=== PATIENT | female | born 1930 | race Asian ===

== ENCOUNTER → 2016-08-03 | Outpatient (CLI) | payer MEDICARE, OTHER ==
--- NOTE | 2016-08-03 14:32 | RAD ---
Abdomen, 2 views, 08/03/2016: History: Nausea and vomiting Gas is present in large and small bowel in a nonspecific pattern. No free air is seen in the abdomen. Surgical clips are present right upper quadrant. There is no evidence of organomegaly. Moderate multilevel degenerative change is present in the spine. IMPRESSION: No acute abdominal abnormality is detected.
== END | disposition home or self-care (01) ==
LOC: DXRADRC 09:59
PROVIDERS: ATTEND Physician Assistant
DX: R11.2 Nausea with vomiting, unspecified (principal)
CPT/HCPCS: 74020

== ENCOUNTER → 2017-02-28 | Outpatient (CLI) | payer MEDICARE, OTHER ==
[~2017-02-28] MED LIST: IOHEXOL 240 MG/ML 50ML VIAL. ONE; IOHEXOL 240 MG/ML 50ML VIAL. PO ONE
[2017-02-28 10:44] LABS: CREATININE 0.5 mg/dL (0.6-1.0); GFR 117.5
--- NOTE | 2017-02-28 15:36 | RAD ---
CT of the abdomen without contrast, 02/28/2017: History: Epigastric pain and vomiting Multidetector CT imaging was performed following oral administration of contrast. No IV contrast was administered for this exam. There are several calcified nodules in the right lung base compatible with granulomas. There is mild bibasilar linear scarring and/or atelectasis. The gallbladder is surgically absent. The unopacified liver shows no abnormality. No pancreatic abnormality is seen. The spleen is of normal size. The unopacified kidneys are unremarkable. No adrenal abnormality is detected. There is moderate aortoiliac calcific plaquing without evidence of aneurysm. No abdominal adenopathy is seen. The bowel loops are not dilated. No free air or significant free fluid is identified in the abdomen. There appears to be a surgical mesh involving the anterior abdominal wall at the midline just superior to the level the umbilicus. There is mild loss of height of the L1 vertebral body of indeterminate age. There are moderate scattered degenerative changes in the lumbar spine. IMPRESSION: 1. Chronic findings as described above. 2. No acute abdominal abnormality is detected. PQRS Compliance Statement: One or more of the following individualized dose reduction techniques were utilized for this examination: 1. Automated exposure control 2. Adjustment of the mA and/or kV according to patient size 3. Use of iterative reconstruction technique
== END | disposition home or self-care (01) ==
LOC: CT 10:03
PROVIDERS: ATTEND Physician Assistant Medical
DX: R91.8 Other nonspecific abnormal finding of lung field (principal); R10.13 Epigastric pain; R11.10 Vomiting, unspecified; I70.0 Atherosclerosis of aorta; M47.896 Other spondylosis, lumbar region; Z90.49 Acquired absence of other specified parts of digestive tract
CPT/HCPCS: 36415; 74150; 82565; 84520; Q9966

== ENCOUNTER → 2017-09-26 | Outpatient (CLI) | payer MEDICARE, OTHER ==
--- NOTE | 2017-09-26 09:29 | RAD ---
Examination: 2 views of the right hip HISTORY: History of right lower quadrant pain, groin pain COMPARISON: None available FINDINGS: The right femoral head is within the acetabulum. Moderate joint space loss identified in the right hip joint. There is no obvious acute fracture or dislocation identified. Multiple round soft tissue calcifications project over the right hip region could be loose bodies or injection granulomas. IMPRESSION: 1. Moderate degenerative changes right hip joint. 2. Multiple round soft tissue calcifications project over the right hip region could be loose bodies or injection granulomas. Electronically signed by: Dev Read MD (09/26/2017 9:25 AM) [id number]
[2017-09-26 09:36] LABS: BASO % 1 % (0-3); EOS # 0.1 x10^3/uL (0.0-0.7); EOS % 2 % (0-3); HEMOGLOBIN 14.6 g/dL (12.0-15.5); LYMPH # 1.3 x10^3/uL (1.0-4.8); LYMPH % 28 % (24-48); MEAN CORPUSCULAR HEMOGLOBIN 33 pg (25-35); MEAN CORPUSCULAR HGB CONC 34 g/dL (31-37); MEAN CORPUSCULAR VOLUME 97 fL (79-100); MONO # 0.3 x10^3/uL (0.0-1.1); MONO % 6 % (0-9); NEUT % 63 % (31-73); PLATELET COUNT 155 x10^3/uL (140-400); RED BLOOD COUNT 4.43 x10^6/uL (3.50-5.40); RED CELL DISTRIBUTION WIDTH 12.7 % (11.5-14.5); WHITE BLOOD COUNT 4.8 x10^3/uL (4.0-11.0)
[2017-09-26 09:48] LABS: ALBUMIN 3.5 g/dL (3.4-5.0); ALBUMIN/GLOBULIN RATIO 1.1 (1.0-1.7); CALCIUM 8.8 mg/dL (8.5-10.1); CREATININE 0.8 mg/dL (0.6-1.0); GFR 68.2; POTASSIUM 4.4 mmol/L (3.5-5.1); TOTAL BILIRUBIN 0.6 mg/dL (0.2-1.0); TOTAL PROTEIN 6.7 g/dL (6.4-8.2)
[2017-09-26 10:49] LABS: SEDIMENTATION RATE 8 (0-25)
--- NOTE | 2017-09-26 17:22 | RAD ---
Abdomen, 2 views, 09/26/2017: HISTORY: Rib and groin pain Gas is present in large and small bowel in a nonspecific pattern. No free air is seen in the abdomen. There are surgical clips in the right upper quadrant. Lower pelvic calcifications are probably phleboliths. There is no evidence organomegaly. Moderate multilevel degenerative changes are present in the spine. There is mild loss of height of several vertebral bodies of indeterminate ages. IMPRESSION: No acute abdominal abnormality is detected. Electronically signed by: Jez Hunt MD (09/26/2017 5:19 PM) [facility]
== END | disposition home or self-care (01) ==
LOC: PMG 08:38
PROVIDERS: ATTEND Physician Assistant
DX: R10.31 Right lower quadrant pain (principal)
CPT/HCPCS: 36415; 73502; 74021; 80053; 82150; 83690; 85025; 85651

== ENCOUNTER → 2017-10-06 | Outpatient (CLI) | payer MEDICARE, OTHER ==
[~2017-10-06] MED LIST changes: +IOHEXOL 300 MG/ML 75 ML VIAL. IV ONE
--- NOTE | 2017-10-06 12:59 | RAD ---
PQRS Compliance Statement: One or more of the following individualized dose reduction techniques were utilized for this examination: 1. Automated exposure control 2. Adjustment of the mA and/or kV according to patient size 3. Use of iterative reconstruction technique CT abdomen/pelvis with contrast 10/06/2017 12:00 AM INDICATION: Abdominal pain for 2 weeks. COMPARISON: CT abdomen February 28, 2017 TECHNIQUE: Multiple axial CT images of the abdomen and pelvis were obtained after the intravenous administration of 75 mL Omnipaque 300. Coronal and sagittal reformats are provided. FINDINGS: There is a 3 mm solid noncalcified subpleural nodule in the right middle lobe. There is a 5 mm solid noncalcified pulmonary nodule along the major fissure in the right middle lobe. There is a 4 mm solid noncalcified pulmonary nodule in the right middle lobe with suggestion of internal calcification most suggestive of a pulmonary granuloma. Heart size is within normal limits. The liver, spleen, bilateral adrenal glands, and pancreas are normal in appearance. Gallbladder is surgically absent. There is no intrahepatic or extrahepatic biliary ductal dilatation. Abdominal aorta is mild a tortuous with mild to moderate calcified and noncalcified atheromatous plaque. There are no pathologically enlarged lymph nodes in abdomen or pelvis. There is no free fluid or free intraperitoneal air. The kidneys enhance symmetrically. There is no suspicious renal mass. There is no hydronephrosis. There are no suspected calculi within the kidneys, ureters or urinary bladder. Fluid-filled dilated loops of small bowel measure up to 3.2 cm. Oral contrast was administered. Oral contrast is identified level of the proximal jejunum. Transition point is suspected adjacent to the ventral abdominal mesh in the midline abdomen (series 2, image 53). Findings may be secondary to adhesions. Small volume free fluid is noted within the pelvis. Colon is decompressed. Appendix is normal in appearance. Urinary bladder is within normal limits given degree of distention. No suspicious pelvic mass is visualized. No suspicious osseous lesions are identified. There is superior endplate compression deformity involving L1 which appears chronic with approximately 50 percent height loss. IMPRESSION: 1. Findings are suggestive of small bowel obstruction with transition point suspected at the level of the ventral abdominal hernia mesh in the midabdomen. Findings may be secondary to adhesions. Short-term follow-up examination may be of benefit to assess for partial versus complete obstruction. 2. Solid noncalcified pulmonary nodules are identified in the right middle and lower lobes. Please refer the Fleischner 2017 pulmonary nodule guidelines for follow-up recommendations. Typically pulmonary nodules measuring less than 6 mm will not need additional follow-up. Electronically signed by: Sharon Lentz MD (10/06/2017 12:55 PM) [id number]
== END | disposition home or self-care (01) ==
LOC: EDSEX → PMG 09:56
PROVIDERS: ATTEND Physician Assistant
DX: I70.0 Atherosclerosis of aorta (principal); R91.8 Other nonspecific abnormal finding of lung field
CPT/HCPCS: 74177; Q9966; Q9967

== ENCOUNTER → 2017-10-20 | Outpatient (CLI) | payer MEDICARE, OTHER | END | disposition home or self-care (01) | LOC: SURG 07:49 | PROVIDERS: ATTEND Anesthesiology Pain Medicine | DX: M25.551 Pain in right hip (principal) | CPT/HCPCS: 99213 ==

== ENCOUNTER 2018-06-19 13:53 | Inpatient (IN) | payer MEDICARE, OTHER ==
[~2018-06-19] VITALS: Ht 165.1 cm; Wt 76.3 kg
[2018-06-19] MEDS ORDERED: IV NORMAL SALINE 1,000ML 1,000 ML IV ONE (14:45)
--- NOTE | 2018-06-19 14:48 | PHYS DOC ---
Past History Past Medical History: GERD Past Surgical History: No Surgical History Smoking: Non-smoker Alcohol Use: None Drug Use: None Adult General Chief Complaint Chief Complaint: ABDOMINAL PAIN HPI HPI Patient is an 87 year old female with a PMH of GERD who presents with two days of dull upper abdominal pain that radiates into her chest. Several years ago she felt similarly and it was worked up to be attributed to reflux. She takes omeprazole and watches what she eats, but recently has been eating larger meals. Patient denies history of abdominal surgery, melena or hematochezia. She also denies fevers and chills, nausea, vomiting, shortness of breath, palpitations, or chest tightness/pressure. Of note patient has history of small bowel obstruction in September of 2017. Review of Systems Review of Systems Constitutional: Denies fever or chills [] HENT: Denies nasal congestion or sore throat [] Respiratory: Denies cough or shortness of breath [] GI: Reports upper abdominal pain, denies nausea, vomiting, diarrhea [] : Denies dysuria or hematuria [] Musculoskeletal: Denies back pain or joint pain [] Integument: Denies rash or skin lesions [] Neurologic: Denies headache, focal weakness or sensory changes [] Complete systems were reviewed and found to be within normal limits, except as documented in this note. Allergies Allergies Allergies Coded Allergies Type Severity Reaction Last Updated Verified No Known Drug Allergies 06/19/18 No Physical Exam Physical Exam Constitutional: Well developed, well nourished, no acute distress, non-toxic appearance. [] HENT: Normocephalic, atraumatic, bilateral external ears normal, oropharynx dry. [] Eyes: EOMI, conjunctiva normal, no discharge. [] Neck: Normal range of motion, no tenderness, no JVD. [] Cardiovascular: Heart rate regular rhythm, no murmur [] Lungs & Thorax: Bilateral breath sounds clear to auscultation [] Abdomen: upper abdomen tender on palpation, soft, no distention. [] Skin: Warm, dry, no erythema, no rash. [] Back: No tenderness, no CVA tenderness. [] Extremities: No tenderness, moves all, mild edema of lower extremities [] Neurologic: Alert and oriented X 3, normal motor function, normal sensory function, no focal deficits noted. [] Psychologic: Affect normal, judgement normal, mood normal, pleasant, conversational [] Current Patient Data Vital Signs Vital Signs Date Time Temp Pulse Resp B/P (MAP) Pulse Ox O2 Delivery O2 Flow Rate FiO2 06/19/18 14:14 97.6 88 22 97 Room Air EKG EKG @15:10 NSR with HR of 82 BPM QRS: 76 QT/QTc: 388/456 ms Radiology/Procedures Radiology/Procedures PROCEDURE: CT ABDOMEN PELVIS WO CONTRAST CT of the abdomen and pelvis without contrast, 06/19/2018: HISTORY: Upper abdominal pain Noncontrast scans were obtained and compared to a study from 10/06/2017. There is a combination of calcified and noncalcified nodules in the right lung base which appear unchanged. Old granulomatous disease is suspected. There are linear basilar pulmonary scars. The gallbladder is surgically absent. The unopacified liver shows no abnormality. No pancreatic abnormality is seen. The spleen is of normal size. There is mild bilateral renal cortical scarring. The kidneys show no evidence of obstruction. There is moderate aortoiliac calcific plaquing without evidence of aneurysm. No abdominal or pelvic adenopathy is seen. The uterus is surgically absent. The stomach is unremarkable. There are mildly dilated loops of mid small bowel which are predominantly fluid-filled. There are loops of distal small bowel which are not dilated. There is a small amount of gas in and fluid in the colon without evidence of colonic distention. The appendix is visualized and shows no abnormality. The findings suggest partial small bowel obstruction. The precise transition point is not clearly demonstrated, however, scarring related to the surgical mesh adjacent to the abdominal wall at the lower abdominal level is most likely. Similar findings were present on the 10/06/2017 exam. There is mild streaky increased density in the mesentery related to some of these dilated small bowel loops compatible with edema. There is a small amount of free fluid in the pelvis. No free intra-abdominal air is present. Moderate multilevel degenerative changes are present in the spine. A mild L1 vertebral compression fracture is unchanged. IMPRESSION: 1. Recurrent partial small bowel obstruction similar to that seen on 10/06/2017. 2. Mild streaky mesenteric edema with a small amount of free fluid in the pelvis. 4. Stable calcified and noncalcified small right basilar pulmonary nodules likely due to old granulomatous disease. PQRS Compliance Statement: One or more of the following individualized dose reduction techniques were utilized for this examination: 1. Automated exposure control 2. Adjustment of the mA and/or kV according to patient size 3. Use of iterative reconstruction technique Electronically signed by: Jez Hunt MD (06/19/2018 4:04 PM) [facility] Course & Med Decision Making Course & Med Decision Making Pertinent Labs and Imaging studies reviewed. (See chart for details) Patient is an 87 year old female who presented with two days of upper abdominal pain and diarrhea. There was no significant abnormalities noted on lab work. Her CT abdomen/pelvis revealed partial small bowel obstruction. Similar findings were present on the 10/06/2017 exam. Likely due to adhesions from previous hernia repair. Patient will be admitted for further management and treatment. Patient requiring admission for further evaluation and treatment. Discussed with Dr. Diaz (hospitalist) who is in agreement with admit. Discussed findings and plan with patient, who acknowledges understanding and agreement. Dragon Disclaimer Dragon Disclaimer This electronic medical record was generated, in whole or in part, using a voice recognition dictation system. Departure Departure: Impression: Primary Impression: Small bowel obstruction Disposition: ADMITTED INPATIENT Admitting Physician: Vishal Diaz Condition: STABLE Referrals: LIZBETH IBANEZ (PCP) Scripts Nystatin (NYSTATIN) 15 Gm Powder 1 JACQUELINE TP BID for CANDIDIASIS for 30 Days, #1 BOTTLE Prov: VISHAL DIAZ MD 06/22/18 KENDRA MEJIA DO Jun 19, 2018 14:48
[2018-06-19] MEDS ORDERED: FAMOTIDINE 20 MG/2 ML VIAL IVP ONE (15:00)
--- NOTE | 2018-06-19 15:14 | EKG ---
[address] [address] Test Date: 2018-06-19 Test Time: 15:10:18 Pat Name: ZACH SANTAMARIA Department: Room: Gender: F Associate Engineer: : [id number] Requested By: KENDRA MEJIA Order Number: [id number] Reading MD: Emmett Calix Measurements Intervals [place] Rate: 82 P: 37 MA: 188 QRS: -1 QRSD: 76 T: 23 QT: 388 QTc: 456 Interpretive Statements SINUS RHYTHM LEFTWARD AXIS Electronically Signed On 06-20-2018 9:13:37 CHARTER REPRESENTATIVE by Emmett Calix
[2018-06-19 15:21] LABS: BASO # 0.1 x10^3/uL (0.0-0.2); BASO % 1 % (0-3); EOS # 0.1 x10^3/uL (0.0-0.7); EOS % 2 % (0-3); HEMATOCRIT 43.9 % (36.0-47.0); HEMOGLOBIN 14.9 g/dL (12.0-15.5); LYMPH # 0.9 x10^3/uL (1.0-4.8); LYMPH % 12 % (24-48); MEAN CORPUSCULAR HEMOGLOBIN 33 pg (25-35); MEAN CORPUSCULAR HGB CONC 34 g/dL (31-37); MEAN CORPUSCULAR VOLUME 99 fL (79-100); MONO # 0.4 x10^3/uL (0.0-1.1); MONO % 6 % (0-9); NEUT # 5.6 x10^3uL (1.8-7.7); NEUT % 79 % (31-73); PLATELET COUNT 183 x10^3/uL (140-400); RED BLOOD COUNT 4.44 x10^6/uL (3.50-5.40); RED CELL DISTRIBUTION WIDTH 12.9 % (11.5-14.5); WHITE BLOOD COUNT 7.1 x10^3/uL (4.0-11.0)
--- NOTE | 2018-06-19 16:07 | RAD ---
CT of the abdomen and pelvis without contrast, 06/19/2018: HISTORY: Upper abdominal pain Noncontrast scans were obtained and compared to a study from 10/06/2017. There is a combination of calcified and noncalcified nodules in the right lung base which appear unchanged. Old granulomatous disease is suspected. There are linear basilar pulmonary scars. The gallbladder is surgically absent. The unopacified liver shows no abnormality. No pancreatic abnormality is seen. The spleen is of normal size. There is mild bilateral renal cortical scarring. The kidneys show no evidence of obstruction. There is moderate aortoiliac calcific plaquing without evidence of aneurysm. No abdominal or pelvic adenopathy is seen. The uterus is surgically absent. The stomach is unremarkable. There are mildly dilated loops of mid small bowel which are predominantly fluid-filled. There are loops of distal small bowel which are not dilated. There is a small amount of gas in and fluid in the colon without evidence of colonic distention. The appendix is visualized and shows no abnormality. The findings suggest partial small bowel obstruction. The precise transition point is not clearly demonstrated, however, scarring related to the surgical mesh adjacent to the abdominal wall at the lower abdominal level is most likely. Similar findings were present on the 10/06/2017 exam. There is mild streaky increased density in the mesentery related to some of these dilated small bowel loops compatible with edema. There is a small amount of free fluid in the pelvis. No free intra-abdominal air is present. Moderate multilevel degenerative changes are present in the spine. A mild L1 vertebral compression fracture is unchanged. IMPRESSION: 1. Recurrent partial small bowel obstruction similar to that seen on 10/06/2017. 2. Mild streaky mesenteric edema with a small amount of free fluid in the pelvis. 4. Stable calcified and noncalcified small right basilar pulmonary nodules likely due to old granulomatous disease. PQRS Compliance Statement: One or more of the following individualized dose reduction techniques were utilized for this examination: 1. Automated exposure control 2. Adjustment of the mA and/or kV according to patient size 3. Use of iterative reconstruction technique Electronically signed by: Jez Hunt MD (06/19/2018 4:04 PM) [facility]
[2018-06-19 16:42] LABS: ALBUMIN 3.4 g/dL (3.4-5.0); ALBUMIN/GLOBULIN RATIO 1.2 (1.0-1.7); CALCIUM 8.8 mg/dL (8.5-10.1); CREATININE 0.7 mg/dL (0.6-1.0); GFR 79.5; POTASSIUM 3.7 mmol/L (3.5-5.1); TOTAL BILIRUBIN 1.2 mg/dL (0.2-1.0); TOTAL PROTEIN 6.2 g/dL (6.4-8.2)
[2018-06-19] MEDS ORDERED: ONDANSETRON PF 4 MG/2 ML VIAL. IV PRN (17:30)
[2018-06-19 19:35] VITALS: BP 133/80
[2018-06-19] MEDS ORDERED: FURO-69 PO (19:39)
[2018-06-19] MEDS ORDERED: ESOM40CA47 PO (19:39)
[2018-06-19] MEDS ORDERED: IV NORMAL SALINE 1,000ML 1,000 ML IV SCH (19:45)
[2018-06-19] MEDS: POTASSIUM CL 20MEQ D5-0.45NACL 1,000 ML IV SCH (20:18)
[2018-06-19 23:22] VITALS: BP 136/82
[2018-06-19 23:50] LABS: BACTERIA,URINE 0 /HPF (0-FEW); BILIRUBIN,URINE NEG (NEG); CLARITY,URINE CLEAR; COLOR,URINE YELLOW; GLUCOSE,URINE NEG (NEG); NITRITE,URINE NEG (NEG); RBC,URINE 0 /HPF (0-2); SQUAMOUS EPITHELIAL CELL,UR OCC /LPF; UROBILINOGEN,URINE 1 mg/dL (0.2 mg/dL); WBC,URINE RARE /HPF (0-4)
[2018-06-20 05:25] VITALS: BP 120/82
[2018-06-20 06:39] LABS: BASO % 1 % (0-3); EOS # 0.2 x10^3/uL (0.0-0.7); EOS % 3 % (0-3); HEMATOCRIT 41.2 % (36.0-47.0); HEMOGLOBIN 13.9 g/dL (12.0-15.5); LYMPH # 0.8 x10^3/uL (1.0-4.8); LYMPH % 13 % (24-48); MEAN CORPUSCULAR HEMOGLOBIN 33 pg (25-35); MEAN CORPUSCULAR HGB CONC 34 g/dL (31-37); MEAN CORPUSCULAR VOLUME 99 fL (79-100); MONO # 0.4 x10^3/uL (0.0-1.1); MONO % 6 % (0-9); NEUT # 4.7 x10^3uL (1.8-7.7); NEUT % 77 % (31-73); PLATELET COUNT 159 x10^3/uL (140-400); RED BLOOD COUNT 4.17 x10^6/uL (3.50-5.40); RED CELL DISTRIBUTION WIDTH 12.9 % (11.5-14.5); WHITE BLOOD COUNT 6.1 x10^3/uL (4.0-11.0)
[2018-06-20 06:58] LABS: ALBUMIN 2.9 g/dL (3.4-5.0); CALCIUM 7.9 mg/dL (8.5-10.1); CREATININE 0.6 mg/dL (0.6-1.0); POTASSIUM 3.5 mmol/L (3.5-5.1); TOTAL PROTEIN 5.8 g/dL (6.4-8.2)
[2018-06-20] MEDS: POTASSIUM CL 20MEQ D5-0.45NACL 1,000 ML IV SCH ×2 (07:41→18:09)
[2018-06-20 10:35] VITALS: BP 118/77
[2018-06-20 15:53] VITALS: BP 139/75
[2018-06-20] MEDS: PANTOPRAZOLE IV 40 MG VIAL. IVP SCH (17:30)
--- NOTE | 2018-06-20 17:46 | HP ---
ADMIT DATE: 06/19/2018 HISTORY OF PRESENT ILLNESS: The patient is an 87-year-old [place] female patient who came to the Emergency Room complaining of abdominal pain. She apparently was admitted several times to [facility] with multiple times for what seems to be a paralytic ileus or partial bowel obstruction that resolved spontaneously. She was extensively investigated in the Emergency Room. CT scan showed that the patient has recurrent partial small-bowel obstruction similar to that seen on 10/04/2017. She has mild streaky mesenteric edema with a small amount of free fluid in the pelvis, stable calcified and noncalcified small right basilar pulmonary nodules, likely due to old granulomatous disease. The patient was admitted and kept n.p.o., started on IV fluid for bowel rest. The patient said that she has some nausea, but no vomiting. She did have a small bowel movement yesterday and this morning, but did not pass any gas. PAST MEDICAL HISTORY: Significant for previous episode of bowel obstruction that has resolved spontaneously. She has osteoarthritis and gastroesophageal reflux disease. PAST SURGICAL HISTORY: Significant for bilateral cataract extraction, cholecystectomy, incarcerated right inguinal hernia, total abdominal hysterectomy, bilateral salpingo-oophorectomy. She has also left tibia fracture, status post open reduction and internal fixation. ALLERGIES: Her etziyfee-vo-kzm said that SHE HAS DEVELOPED A COUGH WHEN SHE WAS ON LISINOPRIL. MEDICATIONS: She is currently on only 2 medications, furosemide 20 mg once a day and Nexium 40 mg once a day. FAMILY HISTORY: She has 3 brothers and 1 sister older and all . Her father at age of 90 and mother at the age of 94 because of old age. SOCIAL HISTORY: She is . She has 1 son, was ; and 1 daughter, lost and does not know anything about her. She quit smoking 25 years ago. She does not drink alcohol. 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 REVIEW OF SYSTEMS: The patient denied any blurring of vision, cataract, glaucoma or macular degeneration. 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 Denied any nosebleeds, stuffy nose or postnasal drip. Denied any sore throat, sore tongue, toothache, hoarseness of voice or difficulty swallowing. She did complain of nausea, but no vomiting. Last bowel movement was this morning, but denied passing any gas. Denied any dysuria, frequency or hematuria. Denied any chest pain, shortness of breath, orthopnea, or paroxysmal nocturnal dyspnea. PHYSICAL EXAMINATION: GENERAL: On arrival to the Emergency Room, she looked well and was clearly in no apparent respiratory distress. No pallor, jaundice, cyanosis, or thyromegaly. No jugular venous distension. No limb edema. VITAL SIGNS: Her heart rate was 88, blood pressure 159/83, temperature was 97.6, respiratory rate was 22 and oxygen saturation was 97% on room air. HEAD, EYES, EARS, NOSE AND THROAT: Showed normocephalic, atraumatic. NECK: Supple. HEART: Showed normal first and second sounds. No gallop, rub or murmur. CHEST: Clear to auscultation. No crepitation or rhonchi. ABDOMEN: Distended with tenderness around the umbilical area. There is no guarding or rigidity. No organomegaly and bowel sounds are normal. NEUROLOGIC: She is hard of hearing, but otherwise all cranial nerves intact. EXTREMITIES: She moves extremities without difficulty. She ambulates without assistance or assistive devices. She in fact is very independent at home. She drives her car and does her own shopping. LABORATORY DATA: On arrival showed that her serum sodium to be 142, potassium 3.7, chloride 105, bicarbonate 25, anion gap of 12, BUN 9, creatinine 0.7, estimated GFR was 79 mL per minute. Her glucose 158, calcium was 8.8. Her magnesium was 2.2. Total bilirubin was 1.2. AST, ALT, alkaline phosphatase were normal. Her total protein was 6.2, albumin was 3.4. Her white cell count was 7100, hemoglobin 15, hematocrit 44, MCV 99 and platelet count of 183,000 with normal manual differential. Prothrombin time was 9.3, INR of 0.9, and aPTT was 25. Urinalysis was essentially unremarkable. DIAGNOSTIC DATA: Her CT scan of the abdomen and pelvis showed that the patient has recurrent partial small-bowel obstruction similar to that seen on 10/06/2017. She has mild streaky mesenteric edema with a small amount of free fluid in the pelvis; stable calcified and noncalcified small right basilar pulmonary nodules, likely due to old granulomatous disease. ASSESSMENT AND PLAN: The patient was admitted, started on IV fluid, IV pain medication as well antiemetic. We will follow her closely and decide further management accordingly. If she develops severe vomiting, we will pass an NG tube. ROBINA JURADO MD DR: ISABELLA/niurka JOB#: [id number] / [id number]
[2018-06-20 19:45] VITALS: BP 139/83
[2018-06-20] MEDS: NYSTATIN TOPICAL POWDER 15GM BOTTLE. TP SCH (20:28)
[2018-06-20 22:27] VITALS: BP 132/77
--- NOTE | 2018-06-20 23:08 | PN ---
DATE: 06/20/2018 SUBJECTIVE: The patient is resting slightly propped up in bed, in no apparent distress. She continued to complain of pain, abdominal pain around the umbilical area. She has had nausea, but no vomiting. She has not passed any gas. OBJECTIVE: GENERAL: When I examined her this afternoon, she looked well and was clearly in no apparent respiratory distress. No pallor, jaundice, cyanosis, or thyromegaly. No jugular venous distension. No lower limb edema. VITAL SIGNS: Her heart rate was 76, blood pressure was 139/75, temperature was 98.5, respiratory rate 20, and oxygen saturation was 92%. HEAD, EYES, EARS, NOSE, AND THROAT: Normocephalic, atraumatic. NECK: Supple. HEART: Showed normal first and second heart sounds. No gallop or murmur. CHEST: Clear to auscultation. No crepitation or rhonchi. ABDOMEN: Distended, soft with tenderness mostly around the umbilical area. There is no guarding or rigidity. No organomegaly. All hernial orifices intact. Bowel sounds normal. NEUROLOGIC: She is hard of hearing. Otherwise, cranial nerves are intact. She moves extremities without difficulty. She ambulates without assistance or assistive devices. Her intake and output are incompletely recorded. LABORATORY DATA: Her lab work this morning showed her white cell count was 6100, hemoglobin 13.9, hematocrit 41, MCV 99, and platelet count of 159,000. Her serum sodium was 142, potassium 3.5, chloride 106, bicarbonate 27, anion gap of 9, BUN 6, creatinine 0.6, estimated GFR was 95 mL per minute. Her glucose was ____, calcium was 7.9. Total bilirubin, AST, ALT, alkaline phosphatase were normal. Total protein 5.8, albumin 2.9. ASSESSMENT: Small-bowel obstruction. PLAN: To continue with IV fluids, continue to replenish her potassium. I will start her on Protonix for her gastroesophageal reflux disease. I will repeat a KUB. If she continued to have pain, probably by tomorrow, she has no bowel movement and did not pass any gas, we will transfer her to [facility]. ROBINA JURADO MD DR: ISABELLA/niurka JOB#: [id number] / [id number]
[2018-06-21 05:19] VITALS: BP 136/85
[2018-06-21] MEDS: POTASSIUM CL 20MEQ D5-0.45NACL 1,000 ML IV SCH ×2 (05:23→20:24)
[2018-06-21 06:59] LABS: BASO % 1 % (0-3); EOS # 0.2 x10^3/uL (0.0-0.7); EOS % 4 % (0-3); HEMATOCRIT 39.5 % (36.0-47.0); HEMOGLOBIN 13.5 g/dL (12.0-15.5); LYMPH # 0.9 x10^3/uL (1.0-4.8); LYMPH % 21 % (24-48); MEAN CORPUSCULAR HEMOGLOBIN 34 pg (25-35); MEAN CORPUSCULAR HGB CONC 34 g/dL (31-37); MEAN CORPUSCULAR VOLUME 98 fL (79-100); MONO # 0.3 x10^3/uL (0.0-1.1); MONO % 7 % (0-9); NEUT # 2.9 x10^3uL (1.8-7.7); NEUT % 68 % (31-73); PLATELET COUNT 151 x10^3/uL (140-400); RED BLOOD COUNT 4.04 x10^6/uL (3.50-5.40); RED CELL DISTRIBUTION WIDTH 12.7 % (11.5-14.5); WHITE BLOOD COUNT 4.3 x10^3/uL (4.0-11.0)
[2018-06-21 07:09] LABS: ALBUMIN 2.9 g/dL (3.4-5.0); ALK PHOS 82 U/L (46-116); ALT (SGPT) 9 U/L (14-59); ANION GAP 8 (6-14); AST (SGOT) < 5 U/L (15-37); BLOOD UREA NITROGEN 4 mg/dL (7-20); BUN/CREATININE RATIO 7 (6-20); CALCIUM 8.2 mg/dL (8.5-10.1); CARBON DIOXIDE 27 mmol/L (21-32); CHLORIDE 107 mmol/L (98-107); CREATININE 0.6 mg/dL (0.6-1.0); GLUCOSE 175 mg/dL (70-99); LACTATE DEHYDROGENASE 150 U/L (81-234); POTASSIUM 3.6 mmol/L (3.5-5.1); SODIUM 142 mmol/L (136-145); TOTAL BILIRUBIN 0.8 mg/dL (0.2-1.0); TOTAL PROTEIN 5.8 g/dL (6.4-8.2)
--- NOTE | 2018-06-21 07:43 | RAD ---
Portable abdomen, 06/20/2018: HISTORY: Follow-up small bowel obstruction There is a small amount of gas in large and small bowel without significant bowel distention. No organomegaly is seen. Scattered vascular calcifications are present. Moderate multilevel degenerative change is present in the spine. IMPRESSION: No acute abdominal abnormality is detected. Electronically signed by: Jez Hunt MD (06/21/2018 7:41 AM) [facility]
[2018-06-21] MEDS: NYSTATIN TOPICAL POWDER 15GM BOTTLE. TP SCH ×2 (08:32→20:24)
[2018-06-21] MEDS: PANTOPRAZOLE IV 40 MG VIAL. IVP SCH (08:32)
[2018-06-21 16:18] VITALS: BP 149/83
[2018-06-21 19:39] VITALS: BP 110/74
--- NOTE | 2018-06-21 20:20 | PN ---
DATE: 06/21/2018 SUBJECTIVE: The patient is resting slightly propped up in bed, in no apparent distress. She apparently has no more abdominal pain. She is passing gas. Her KUB was done, showed no evidence of any bowel obstruction. We will start her on a clear liquid diet and advance to full liquid this evening and tomorrow, put her on a regular diet and she has no problem with that. She can be discharged home to follow with her primary care physician. PHYSICAL EXAMINATION: GENERAL: When I saw her this afternoon, she looked well and was clearly in no apparent respiratory distress. No pallor, jaundice, cyanosis, or thyromegaly. No jugular venous distension. No lower limb edema. VITAL SIGNS: Her heart rate was 84, blood pressure was 136/85, temperature was 97.9, respiratory rate 20, and oxygen saturation was 94%. ABDOMEN: Soft, nontender. There is no guarding or rigidity. No organomegaly. All hernial orifices intact. Bowel sounds normal. Her intake over the last 24 hours was incompletely recorded, output was 300. LABORATORY DATA: This morning showed a serum sodium 142, potassium 3.6, chloride 107, bicarbonate 27, anion gap of 8, BUN 4, creatinine 0.6, estimated GFR was 97 mL per minute. Her glucose was 175. Calcium was 8.2. Total bilirubin, AST, ALT, alkaline phosphatase were normal. Her total protein was 5.8, albumin was 2.9. Her white cell count was 4300, hemoglobin 13, hematocrit 39, MCV 98 and platelet count of 151. ASSESSMENT: Partial small-bowel obstruction versus paralytic ileus apparently resolving. PLAN: To start her on clear liquid and advance as tolerated. Gastroesophageal reflux disease for which she continues to be on Protonix. Her blood sugar is slightly elevated. We will monitor her diet and advised her to follow with her primary care physician. She might require to be on oral hypoglycemic agent. ROBINA JURADO MD DR: ISABELLA/niurka JOB#: [id number] / [id number]
[2018-06-21 22:53] VITALS: BP 117/73
[2018-06-22 05:30] VITALS: BP 158/84
[2018-06-22] MEDS: PANTOPRAZOLE IV 40 MG VIAL. IVP SCH (08:04)
[2018-06-22] MEDS: NYSTATIN TOPICAL POWDER 15GM BOTTLE. TP SCH (08:07)
[2018-06-22 10:49] VITALS: BP 144/82
[2018-06-22] MEDS ORDERED: NYST15PO9 TP (13:21)
--- NOTE | 2018-06-22 19:17 | DS ---
DATE OF DISCHARGE: 06/22/2018 HOSPITAL COURSE: The patient is an 87-year-old [place] Citizen [place] female patient who was admitted initially with recurrent bouts of nausea, vomiting, abdominal pain, and constipation. CT scan showed that she has recurrent partial small-bowel obstruction similar to that seen on 10/06/2017. The patient was initially kept n.p.o. We will start her on clear liquid diet. She started passing gas and less bowel movement. Her abdominal pain has largely subsided to advance her diet and has been tolerating it very well, and the patient was discharged home to follow with her primary care physician. PHYSICAL EXAMINATION: GENERAL: When I examined her today, she looked well and was clearly in no apparent respiratory distress, slightly pale. No jaundice, cyanosis, or thyromegaly. No jugular venous distension. No limb edema. VITAL SIGNS: Her heart rate was 89, blood pressure was 144/82, temperature was 98, respiratory rate was ____ and oxygen saturation was 94% on room air. HEAD, EYES, EARS, NOSE AND THROAT: Showed normocephalic, atraumatic. NECK: Supple. HEART: Normal first and second heart sounds with no gallop, rub or murmur. CHEST: Clear to auscultation. No crepitation or rhonchi. ABDOMEN: Distended, soft, nontender. No guarding or rigidity. No organomegaly. Hernial orifice intact. Bowel sounds normal. NEUROLOGIC: She was awake, alert, responding appropriately. Cranial nerves intact. She moves extremities without difficulty. She ambulates without assistance or assistive devices. Her intake over the last 24 hours was 2477, output was 1750. LABORATORY DATA: Showed a white cell count 4300, hemoglobin 13, hematocrit 39, MCV 98 and platelet count 251,000. Her chemistry showed a serum sodium 142, potassium 3.6, chloride 107, bicarbonate 27, anion gap of 8, BUN 4, creatinine 0.6, estimated GFR was 95 mL per minute. Her glucose was 175, calcium was 8.2. Total bilirubin, AST, ALT, alkaline phosphatase were normal. Total protein was 5.8, albumin was 2.9. DISCHARGE MEDICATIONS: The patient was discharged home to continue on following medication: Nystatin powder for her intertriginous candidiasis, swelling of both groin areas. Nexium 40 mg once a day for her gastroesophageal reflux disease, partial small-bowel obstruction versus paralytic ileus resolved. Her blood sugar was slightly high, hyperglycemia, for which I advised her to follow with her primary care physician; protein calorie malnutrition, serum albumin is only 2.9 mg/dL. ROBINA JURADO MD DR: ISABELLA/niurka JOB#: [id number] / [id number]
== END 2018-06-22 13:45 | disposition home or self-care (01) | DRG 389 ==
LOC: ER 13:53 → EDSEX 13:53 → 1 SOUTH 16:20
PROVIDERS: ADMIT Internal Medicine; ATTEND Internal Medicine
DX: K56.690 Other partial intestinal obstruction (principal); E44.0 Moderate protein-calorie malnutrition; M19.90 Unspecified osteoarthritis, unspecified site; K21.9 Gastro-esophageal reflux disease without esophagitis; Z87.891 Personal history of nicotine dependence; Z79.899 Other long term (current) drug therapy; Z90.710 Acquired absence of both cervix and uterus; Z98.41 Cataract extraction status, right eye; Z98.42 Cataract extraction status, left eye; B37.2 Candidiasis of skin and nail
CPT/HCPCS: 36415; 74018; 74176; 80053; 81001; 82553; 83615; 83690; 83735; 84484; 85025; 85610; 85730; 93005; 96361; 96374; 96375; 96376; C9113; J2405; J3010; J3490; 99285-25; J7030

== ENCOUNTER 2019-03-18 12:41 | Inpatient (IN) | payer MEDICARE, OTHER ==
[~2019-03-18] VITALS: Ht 160 cm; Wt 58.7 kg
[~2019-03-18 12:41] MED LIST changes: +ESOM40CA47 PO; +FURO-69 PO; -IOHEXOL 240 MG/ML 50ML VIAL. ONE; -IOHEXOL 240 MG/ML 50ML VIAL. PO ONE; -IOHEXOL 300 MG/ML 75 ML VIAL. IV ONE; +NYST15PO9 TP
[2019-03-18] MEDS ORDERED: LIDO:MAALOX 1:1 20 ML SINGLE DOSE. PO ONE (13:00)
[2019-03-18 13:44] LABS: BASO # 0.1 x10^3/uL (0.0-0.2); BASO % 1 % (0-3); EOS % 0 % (0-3); HEMATOCRIT 48.5 % (36.0-47.0); HEMOGLOBIN 16.8 g/dL (12.0-15.5); LYMPH # 1.6 x10^3/uL (1.0-4.8); LYMPH % 20 % (24-48); MEAN CORPUSCULAR HEMOGLOBIN 33 pg (25-35); MEAN CORPUSCULAR HGB CONC 35 g/dL (31-37); MEAN CORPUSCULAR VOLUME 96 fL (79-100); MONO # 0.6 x10^3/uL (0.0-1.1); MONO % 7 % (0-9); NEUT # 5.5 x10^3uL (1.8-7.7); NEUT % 71 % (31-73); PLATELET COUNT 220 x10^3/uL (140-400); RED BLOOD COUNT 5.03 x10^6/uL (3.50-5.40); RED CELL DISTRIBUTION WIDTH 13.3 % (11.5-14.5); WHITE BLOOD COUNT 7.7 x10^3/uL (4.0-11.0)
[2019-03-18 13:53] LABS: ALBUMIN 3.6 g/dL (3.4-5.0); GFR 52.6; MAGNESIUM 2.2 mg/dL (1.8-2.4); POTASSIUM 3.2 mmol/L (3.5-5.1); TOTAL BILIRUBIN 4.2 mg/dL (0.2-1.0); TOTAL PROTEIN 7.2 g/dL (6.4-8.2)
[2019-03-18] MEDS ORDERED: MORPHINE SULFATE 4 MG/ML DISP.SYRIN. IV ONE (14:00)
[2019-03-18] MEDS ORDERED: IV NORMAL SALINE 1,000ML 1,000 ML IV ONE ×2 (14:00→15:30)
[2019-03-18] MEDS ORDERED: IV NORMAL SALINE 50ML 50 ML ONE (14:10)
[2019-03-18] MEDS ORDERED: PIPERACILLIN/TAZOBACTAM 3.375 GM VIAL IV ONE (14:11)
[2019-03-18] MEDS ORDERED: PIPERACILLIN/TAZOBACTAM 3.375 GM in IV NORMAL SALINE 50ML 50 ML IV ONE (14:15)
[2019-03-18] MEDS ORDERED: IOHEXOL 300 MG/ML 75 ML VIAL. IV ONE (14:15)
[2019-03-18] MEDS ORDERED: CONTRAST GIVEN MC PRN (14:15)
[2019-03-18 14:24] LABS: BGAS PH 7.49 (7.35-7.45)
--- NOTE | 2019-03-18 14:32 | PHYS DOC ---
Past History Past Medical History: GERD Past Surgical History: No Surgical History Smoking: Non-smoker Alcohol Use: None Drug Use: None Adult General Chief Complaint Chief Complaint: ABDOMINAL PAIN HPI HPI Patient is a 88 year old F who presents with abdominal pain, nausea/vomiting and diarrhea. Magdaleno states that she has had similar episodes on 2 other occasions which resulted from small bowel obstruction. She was admitted to the hospital for bowel rest and her symptoms resolved. The last thing she ate was 2 days ago. She states that eating causes immediate worsening in pain. She has been up to drink. She describes her pain as a dull constant and in the upper abdomen. She feels that her symptoms are worse with food and movement. Her pain is improved with rest and positioning. Her last bowel movement was 2 days ago and was loose. She has had multiple episodes of vomiting over the past several days. She denies blood in her stool or vomit Review of Systems Review of Systems Constitutional: Denies fever or chills [] Eyes: Denies change in visual acuity, redness, or eye pain [] HENT: Denies nasal congestion or sore throat [] Respiratory: Denies cough or shortness of breath [] Cardiovascular: No additional information not addressed in HPI [] GI: Negative except history of present illness : Denies dysuria or hematuria [] Musculoskeletal: Denies back pain or joint pain [] Integument: Denies rash or skin lesions [] Neurologic: Denies headache, focal weakness or sensory changes [] Endocrine: Denies polyuria or polydipsia [] All other systems were reviewed and found to be within normal limits, except as documented in this note. Family History Family History No pertinent family medical history was reported Current Medications Current Medications Current Medications Medications (Trade) Dose Ordered Sig/Ethan Start Time Stop Time Status Last Admin Dose Admin Info (Do NOT chart on this entry -- for MONITORING) 1 each PRN DAILY PRN 03/18/19 14:15 03/20/19 14:14 Iohexol (Omnipaque 300 Mg/ml) 75 ml 1X ONCE 03/18/19 14:15 03/18/19 14:16 DC Morphine Sulfate (Morphine 4mg Syringe) 4 mg 1X ONCE 03/18/19 14:00 03/18/19 14:06 DC 03/18/19 14:21 4 MG Multi-Ingredient Mouthwash/Gargle (Gi Cocktail) 20 ml 1X ONCE 03/18/19 13:00 03/18/19 13:01 DC 03/18/19 13:21 20 ML Piperacillin Sod/ Tazobactam Sod (Zosyn) 3.375 gm STK-MED ONCE 03/18/19 14:11 03/18/19 14:11 DC Piperacillin Sod/ Tazobactam Sod 3.375 gm/Sodium Chloride 50 ml @ 100 mls/hr 1X ONCE 03/18/19 14:15 03/18/19 14:44 03/18/19 14:23 100 MLS/HR Sodium Chloride 50 ml @ As Directed STK-MED ONCE 03/18/19 14:10 03/18/19 14:11 DC Allergies Allergies Allergies Coded Allergies Type Severity Reaction Last Updated Verified No Known Drug Allergies 06/19/18 No Physical Exam Physical Exam Constitutional: Well developed, well nourished, mild distress noted HENT: Normocephalic, atraumatic, Eyes: PERRLA, EOMI, conjunctiva normal, no discharge. [] Neck: Normal range of motion, no tenderness, supple, no stridor. [] Cardiovascular:Heart rate regular rhythm, Lungs & Thorax: Bilateral breath sounds clear to auscultation [] Abdomen: Bowel sounds normal, soft, no masses, no pulsatile masses. [] Moderate epigastric tenderness to palpation Skin: Warm, dry, no erythema, no rash. [] Back: No tenderness, no CVA tenderness. [] Extremities: No tenderness, no cyanosis, no clubbing, ROM intact, no edema. [] Neurologic: Alert and oriented X 3, normal motor function, normal sensory function, no focal deficits noted. [] Psychologic: Affect normal, judgement normal, mood normal. [] Current Patient Data Vital Signs Vital Signs Date Time Temp Pulse Resp B/P (MAP) Pulse Ox O2 Delivery O2 Flow Rate FiO2 03/18/19 14:21 20 03/18/19 12:50 97.7 103 100 Room Air Lab Results Laboratory Tests Test 03/18/19 13:15 03/18/19 14:10 White Blood Count 7.7 x10^3/uL (4.0-11.0) Red Blood Count 5.03 x10^6/uL (3.50-5.40) Hemoglobin 16.8 g/dL (12.0-15.5) H Hematocrit 48.5 % (36.0-47.0) H Mean Corpuscular Volume 96 fL (79-100) Mean Corpuscular Hemoglobin 33 pg (25-35) Mean Corpuscular Hemoglobin Concent 35 g/dL (31-37) Red Cell Distribution Width 13.3 % (11.5-14.5) Platelet Count 220 x10^3/uL (140-400) Neutrophils (%) (Auto) 71 % (31-73) Lymphocytes (%) (Auto) 20 % (24-48) L Monocytes (%) (Auto) 7 % (0-9) Eosinophils (%) (Auto) 0 % (0-3) Basophils (%) (Auto) 1 % (0-3) Neutrophils # (Auto) 5.5 x10^3uL (1.8-7.7) Lymphocytes # (Auto) 1.6 x10^3/uL (1.0-4.8) Monocytes # (Auto) 0.6 x10^3/uL (0.0-1.1) Eosinophils # (Auto) 0.0 x10^3/uL (0.0-0.7) Basophils # (Auto) 0.1 x10^3/uL (0.0-0.2) Sodium Level 139 mmol/L (136-145) Potassium Level 3.2 mmol/L (3.5-5.1) L Chloride Level 96 mmol/L (98-107) L Carbon Dioxide Level 16 mmol/L (21-32) L Anion Gap 27 (6-14) H Blood Urea Nitrogen 21 mg/dL (7-20) H Creatinine 1.0 mg/dL (0.6-1.0) Estimated GFR (Cockcroft-Gault) 52.6 BUN/Creatinine Ratio 21 (6-20) H Glucose Level 158 mg/dL (70-99) H Calcium Level 10.0 mg/dL (8.5-10.1) Magnesium Level 2.2 mg/dL (1.8-2.4) Total Bilirubin 4.2 mg/dL (0.2-1.0) H Aspartate Amino Transferase (AST) 13 U/L (15-37) L Alanine Aminotransferase (ALT) 12 U/L (14-59) L Alkaline Phosphatase 107 U/L (46-116) Total Protein 7.2 g/dL (6.4-8.2) Albumin 3.6 g/dL (3.4-5.0) Albumin/Globulin Ratio 1.0 (1.0-1.7) Blood pH 7.49 (7.35-7.45) H Blood Gas PCO2 15 mmHg (35-45) *L Blood Gas PO2 106 mmHg (71-100) H Blood Gas HCO3 11 mmol/L (22-26) L Arterial Bld O2 Saturation (Calc) 99 % (92-99) FiO2 21 % EKG EKG [] Radiology/Procedures Radiology/Procedures CT abd/pelvis with contrast Impressions: CT ABD PELV W/ IV CONTRST ONLY Clinical Indication: Abdominal pain. Comparison: CT abdomen and pelvis without contrast June 19, 2018. Technique: Helical CT imaging of the abdomen and pelvis is performed after 74 cc of Omnipaque 300 IV contrast. Oral contrast not given. Findings: Acquisition of the abdomen is repeated due to motion artifact. Right lung base nodules many of which are calcified appear stable. Cardiac size normal. Cholecystectomy. Focal fatty infiltration along the falciform ligament. Spleen, pancreas, and adrenal glands are normal. Moderate atherosclerotic calcification of the abdominal aorta, no aneurysm. There is periumbilical ventral hernia mash. Kidneys enhance symmetrically, no hydronephrosis. There is moderate thickening of the duodenal bulb. There is no surrounding inflammation. There is no dilated small bowel. The appendix is normal. Transverse colon is decompressed, limiting evaluation. No colon wall thickening is seen. Urinary bladder is normal. Hysterectomy. No pelvic free fluid. Stable old compression fracture superior endplate of L1. IMPRESSION: Moderate wall thickening of the duodenal bulb. No surrounding inflammation is seen. Considerations include duodenitis, peptic ulcer disease, or pseudothickening due to lack of distention. Course & Med Decision Making Course & Med Decision Making Pertinent Labs and Imaging studies reviewed. (See chart for details) Magdaleno's history is limited due to language barrier. Language line was attempted to be used however due to technical difficulties quarantine inspector was unable to hear the physician or the patient's. Her daughter in law was used as an quarantine inspector secondarily. Dragon Disclaimer Dragon Disclaimer This electronic medical record was generated, in whole or in part, using a voice recognition dictation system. Departure Departure: Impression: Primary Impression: Hyperbilirubinemia Additional Impression: Duodenitis Disposition: ADMITTED INPATIENT Admitting Physician: Vishal Diaz Condition: STABLE Referrals: LIZBETH IBANEZ (PCP) Problem Qualifiers CARMELITA JEONG MD Mar 18, 2019 14:32
[2019-03-18 14:35] LABS: ACETAMIN < 2.0 mcg/mL (10-30)
--- NOTE | 2019-03-18 15:06 | RAD ---
PQRS Compliance Statement: One or more of the following individualized dose reduction techniques were utilized for this examination: 1. Automated exposure control 2. Adjustment of the mA and/or kV according to patient size 3. Use of iterative reconstruction technique CT ABD PELV W/ IV CONTRST ONLY Clinical Indication: Abdominal pain. Comparison: CT abdomen and pelvis without contrast June 19, 2018. Technique: Helical CT imaging of the abdomen and pelvis is performed after 74 cc of Omnipaque 300 IV contrast. Oral contrast not given. Findings: Acquisition of the abdomen is repeated due to motion artifact. Right lung base nodules many of which are calcified appear stable. Cardiac size normal. Cholecystectomy. Focal fatty infiltration along the falciform ligament. Spleen, pancreas, and adrenal glands are normal. Moderate atherosclerotic calcification of the abdominal aorta, no aneurysm. There is periumbilical ventral hernia mash. Kidneys enhance symmetrically, no hydronephrosis. There is moderate thickening of the duodenal bulb. There is no surrounding inflammation. There is no dilated small bowel. The appendix is normal. Transverse colon is decompressed, limiting evaluation. No colon wall thickening is seen. Urinary bladder is normal. Hysterectomy. No pelvic free fluid. Stable old compression fracture superior endplate of L1. IMPRESSION: Moderate wall thickening of the duodenal bulb. No surrounding inflammation is seen. Considerations include duodenitis, peptic ulcer disease, or pseudothickening due to lack of distention. Electronically signed by: Duke Echeverria MD (03/18/2019 3:03 PM) [id number]
[2019-03-18 18:22] VITALS: BP 152/77
--- NOTE | 2019-03-18 19:08 | NUR ---
Admission Note Patient came to unit in EMS bed with son and daughter in law. Allowed this nurse to ask admission question to son and daughter in law as patient sleepy at this time. Wants her daughter in law or son to be contacted in case of medical questions or notifications. Daughter in law and son were able to provide answers to most of the admitting questions.
[2019-03-18 20:32] VITALS: BP 120/72
[2019-03-18 23:12] VITALS: BP 137/79
[2019-03-19 05:56] VITALS: BP 134/76
--- NOTE | 2019-03-19 07:35 | NUR ---
Patient transferred from ICU to [facility] per Dr. Domingo. New order for electrolyte replacement initiated per protocol for potassium of 3.2.
[2019-03-19] MEDS: POTASSIUM CHLORIDE 10MEQ 100 ML IV SCH ×4 (07:54→10:45)
[2019-03-19 11:24] VITALS: BP 127/79
[2019-03-19 13:22] LABS: HEMATOCRIT 42.1 % (36.0-47.0); HEMOGLOBIN 14.3 g/dL (12.0-15.5); RED BLOOD COUNT 4.36 x10^6/uL (3.50-5.40); RED CELL DISTRIBUTION WIDTH 13.2 % (11.5-14.5); WHITE BLOOD COUNT 6.4 x10^3/uL (4.0-11.0)
[2019-03-19 13:37] LABS: ALBUMIN 2.9 g/dL (3.4-5.0); CALCIUM 8.8 mg/dL (8.5-10.1); CREATININE 0.7 mg/dL (0.6-1.0); GFR 79.3; TOTAL BILIRUBIN 2.1 mg/dL (0.2-1.0); TOTAL PROTEIN 5.9 g/dL (6.4-8.2)
[2019-03-19 13:42] LABS: POTASSIUM 2.4 mmol/L (3.5-5.1)
[2019-03-19] MEDS: POTASSIUM BICARB 20 MEQ EFFERVESCENT TABLET. FT SCH ×2 (14:51→17:23)
[2019-03-19] MEDS: POTASSIUM CL 20MEQ D5-0.2%NACL 1,000 ML IV SCH (14:52)
--- NOTE | 2019-03-19 15:00 | HP ---
ADMIT DATE: 03/18/2019 HISTORY OF PRESENT ILLNESS: The patient is an 88-year-old female patient who came to the Emergency Room complaining of abdominal pain, nausea, vomiting and diarrhea. She stated that she had similar episode on 2 other occasions that resulted from small-bowel obstruction. She was admitted to the hospital for bowel rest and her symptoms resolved. The last time she ate was about 2 days ago. She stated that eating causing immediate worsening in pain. She has been up to drink. She describes her pain as a dull, constant and in the upper abdomen. She feels that her symptoms are worse with food and movement. Her pain is improved with rest and the certain positions. Her last bowel movement was 2 days ago and was loose. She had multiple episodes of vomiting over the last several days. She denied any blood in her stool or vomitus. She was extensively evaluated in the Emergency Room. Her lab work showed that she has hypokalemia and high anion gap metabolic acidosis. Her lactic acid was high at 2.5. Her white cell count, however, was normal. Her hemoglobin and hematocrit were markedly elevated at 16.8 and 48, which is probably due to hemoconcentration. Her blood gases showed a pH of 7.49 and she seemed to have a picture of both metabolic acidosis and respiratory alkalosis. Her toxic screen showed her acetaminophen was less than 2. She has had a CT scan of the abdomen and pelvis, which showed that the patient has right lung base nodule, many of which are calcified and appears stable. Cardiac size normal. She has cholecystectomy and focal fatty infiltration along with the falciform ligament, spleen, pancreas, adrenal glands are normal. She has moderate atherosclerotic calcification of the abdominal aorta. No aneurysm. There is periumbilical ventral hernia mesh. Kidneys enhance symmetrically. No hydronephrosis. There is moderate thickening of the duodenal bulb. There is no surrounding inflammation. There is no dilated small bowel. The appendix is normal. Transverse colon is decompressed, limiting evaluation. No colon wall thickening is seen. Urinary bladder is normal. Hysterectomy and no pelvic free fluid. Stable old compression fracture of the superior endplates of L1. The patient was admitted and started on IV fluid in the form of normal saline at 100 mL per hour. She was started also on piperacillin and tazobactam for some reason. She has received a total of at least 2000 of normal saline together with some potassium IV. PAST MEDICAL HISTORY: Significant for previous episode of bowel obstruction that has resolved spontaneously. She has osteoarthritis and gastroesophageal reflux disease. PAST SURGICAL HISTORY: Significant for bilateral cataract extraction, cholecystectomy, incarcerated right inguinal hernia repair, total abdominal hysterectomy, bilateral salpingo-oophorectomy. She has also left tibia fracture, status post open reduction and internal fixation. ALLERGIES: Her [id number] said that she has developed a cough when she was on LISINOPRIL. FAMILY HISTORY: Noncontributory. She has 3 brothers and 1 sister older and all . Her father at the age of 90 and mother at the age of 94 because of old age. SOCIAL HISTORY: She is . She has 1 son who was . She has one daughter that she was lost and does not know anything about her. She quit smoking about 25 years ago. She does not drink alcohol. 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 REVIEW OF SYSTEMS: As per history of present illness. MEDICATIONS: She is currently on following medications: She is on furosemide 20 mg once a day, Nexium 40 mg once a day and nystatin powder topically twice a day. PHYSICAL EXAMINATION: GENERAL: On arrival to the Emergency Room, the patient was somewhat pale, jaundiced, not cyanosed. No lymphadenopathy, no thyromegaly. No jugular venous distention. No lower limb edema. VITAL SIGNS: Her heart rate was 73, blood pressure was 120/72, temperature was 98.2, respiratory rate was 20, and oxygen saturation was 96%. HEAD, EYES, EARS, NOSE AND THROAT: Showed normocephalic, atraumatic. NECK: Supple. HEART: Showed normal first and second heart sounds. No gallop or murmur. CHEST: Clear to auscultation. No crepitation or rhonchi. ABDOMEN: Soft, nontender except in the epigastric area. There is no guarding or rigidity. No organomegaly. Hernial orifice intact. Bowel sounds normal. NEUROLOGIC: She was awake, alert, responding appropriately. All cranial nerves intact. She moves all extremities without difficulty. LABORATORY DATA: Showed a white cell count 7700, hemoglobin 16.8, hematocrit 48.5, MCV 96, and platelet count 220,000. Serum sodium 139, potassium 3.2, chloride 96, bicarbonate 16, anion gap of 27, BUN 21, creatinine 1, estimated GFR was 52 mL per minute. Her glucose 158, lactic acid was 2.5, calcium was 10. Magnesium was 2.2. Total bilirubin was 4.2 and direct bilirubin is 1.3. AST, ALT, alkaline phosphatase are all normal. Total protein was 7.2, albumin was 3.6. Her toxic screen showed that her acetaminophen was less than 2 mcg/mL. She did have a CT scan of the abdomen and pelvis, which basically showed moderate wall thickening of the duodenal bulb with no surrounding inflammation is seen. Considerations include duodenitis, peptic ulcer disease, thickening due to lack of distention. So, the patient was basically admitted with dehydration, high anion gap acidosis, lactic acidosis as well as elevated conjugated hyperbilirubinemia with normal liver enzymes, likely due to either hemolysis and/or Gilbert's disease. She was started on IV fluid, was admitted for further evaluation and treatment. ROBINA JURADO MD DR: ISABELLA/niurka JOB#: [id number] / [id number]
[2019-03-19 15:43] VITALS: BP 128/72
[2019-03-19 19:30] VITALS: BP 124/77
[2019-03-19] MEDS: POTASSIUM CHLORIDE 20 MEQ TABLET.ER. PO SCH (21:06)
[2019-03-19] MEDS: PANTOPRAZOLE IV 40 MG VIAL. IVP SCH (21:10)
[2019-03-20] MEDS: POTASSIUM CL 20MEQ D5-0.2%NACL 1,000 ML IV SCH ×2 (00:15→04:54)
[2019-03-20 00:59] VITALS: BP 117/73
[2019-03-20 06:24] VITALS: BP 147/84
[2019-03-20 06:24] LABS: HEMATOCRIT 37.9 % (36.0-47.0); RED BLOOD COUNT 3.96 x10^6/uL (3.50-5.40); RED CELL DISTRIBUTION WIDTH 13.4 % (11.5-14.5); WHITE BLOOD COUNT 4.5 x10^3/uL (4.0-11.0)
[2019-03-20 06:31] LABS: ALBUMIN 2.5 g/dL (3.4-5.0); CALCIUM 8.3 mg/dL (8.5-10.1); CREATININE 0.6 mg/dL (0.6-1.0); GFR 94.8; POTASSIUM 3.4 mmol/L (3.5-5.1); TOTAL BILIRUBIN 1.7 mg/dL (0.2-1.0); TOTAL PROTEIN 5.1 g/dL (6.4-8.2)
[2019-03-20] MEDS: PANTOPRAZOLE IV 40 MG VIAL. IVP SCH (08:12)
[2019-03-20] MEDS: POTASSIUM CHLORIDE 20 MEQ TABLET.ER. PO SCH ×2 (08:16→13:13)
--- NOTE | 2019-03-20 09:42 | NUR ---
NURSING NOTE PT WAS ON BEDSIDE THIS AM UPON ASSESSMENT AND MEDICATION ADMINISTRATION. PT IS A&O X3. PT DENIES ANY PAIN AND STATES "I THINK I CAN GO HOME TODAY". PT IS CURRENTLY ON ELECTROLYTE REPLACEMENT AND RECEIVED HER DOSE TODAY. K WAS 3.4 WITH DAILY LABS THIS AM. PT IS X1 STAND BY ASSIST. DIET ADVANCED TO CARDIAC TRAY THIS AM. PT TOLERATED WELL. PT HAD BM 03/19/19. PT IS CALM AND COOPERATIVE WITH ALL CARES. WILL CONTINUE TO MONITOR. DAMIEN CASTRO.
[2019-03-20 11:05] VITALS: BP 102/62
[2019-03-20] MEDS ORDERED: POTA20TA4 PO (14:54)
--- NOTE | 2019-03-20 15:43 | DS ---
DATE OF DISCHARGE: HOSPITAL COURSE: The patient is an 88-year-old [place] female patient who was admitted with a complaint of abdominal pain, nausea, vomiting and diarrhea. She has had similar episode on 2 occasions that resulted from small-bowel obstruction. She was admitted to the hospital for bowel rest and her symptoms resolved. She stated that when she is eating, it causes immediate worsening of this pain. She is able to drink. She describes the pain as dull, constant in the upper abdomen. She feels that her symptoms are worse with food and movement. The pain has improved with rest in certain position. Her last bowel movement was 2 days ago and was loose. When she was evaluated in the Emergency Room, she was found to be markedly dehydrated with secondary erythrocytosis. Her hemoglobin was 16.8, hematocrit 48, likely due to hemoconcentration. She was acidotic and has also lactic acidosis and serum lactic acid was 2.5. She was started on IV fluid. Initially, her potassium dropped down from 3.2 to 2.5. We started her on IV fluid with potassium supplement and her kidney function has improved. Her sodium came down to 141, potassium 3.4, BUN is down to 5 from 21. The creatinine came down from 1 to 0.6. The patient has been up and about, has denied any dizziness, lightheadedness or vertigo. She has no further episodes of nausea, vomiting, was tolerating her diet and decision was made to discharge her home with a prescription for potassium as she is on Lasix without any potassium. PHYSICAL EXAMINATION: GENERAL: When I examined her this afternoon, she looked well and was clearly in no apparent respiratory distress. No pallor, jaundice, cyanosis or thyromegaly. No jugular venous distention. No lower limb edema. VITAL SIGNS: Her heart rate was 85, blood pressure was 102/52, temperature was 98, respiratory rate was 20, and oxygen saturation was 96% on room air. HEAD, EYES, EARS, NOSE AND THROAT: Showed normocephalic, atraumatic. NECK: Supple. HEART: Showed normal first and second heart sounds with no gallop, rub or murmur. CHEST: Clear to auscultation. No crepitation or rhonchi. ABDOMEN: Scaphoid, soft, nontender. NEUROLOGIC: She was awake, alert, responding appropriately. All cranial nerves intact. EXTREMITIES: She moves extremities without difficulty. She ambulates without assistance or assistive devices. LABORATORY DATA: Her lab work this morning showed a serum sodium 141, potassium 3.4, chloride 106, bicarbonate 25, anion gap of 10, BUN 50, creatinine 0.6, estimated GFR was 95 mL per minute. Her glucose was 153, calcium was 8.3. Her total bilirubin is down to 1.7. AST, ALT, alkaline phosphatase were normal. Total protein 5.1, albumin 2.5 and lipase 180. DISCHARGE MEDICATIONS: She was discharged home to continue on her Nexium 40 mg once a day, furosemide 20 mg once a day, nystatin powder apply topically twice a day for skinfold candidiasis and we added also potassium 20 mEq twice a day. 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 ROBINA JURADO MD DR: ISABELLA/niurka JOB#: [id number] / [id number]
--- NOTE | 2019-03-20 15:58 | NUR ---
NURSING NOTE DISCHARGE PT DISCHARGED HOME VIA AMBULATION ACCOMPANIED BY DAUGHTER IN LAW. PT GIVEN WRITTEN AND VERBAL DISCHARGE INSTRUCTIONS. SCRIPT FOR POTASSIUM GIVEN TO PT. LAB ORDER FOR RECHECK ON MONDAY GIVEN TO PT. PT IS TO FOLLOW UP WITH PCP IN 7-10 DAYS OR SOONER IF NEEDED. DAMIEN CASTRO.
[2019-03-20] MEDS ORDERED: NYSTATIN TOPICAL POWDER 15GM BOTTLE. TP SCH (21:00)
[2019-03-21] MEDS ORDERED: FUROSEMIDE 20 MG TABLET PO SCH (09:00)
[2019-03-21] MEDS ORDERED: PANTOPRAZOLE 40 MG TABLET. PO SCH (09:00)
== END 2019-03-20 16:00 | disposition home or self-care (01) | DRG 442 ==
LOC: ER 12:41 → 1 SOUTH 15:25
PROVIDERS: ADMIT Internal Medicine; ATTEND Internal Medicine
DX: E80.4 Gilbert syndrome (principal); N17.9 Acute kidney failure, unspecified; E87.2 Acidosis; E87.4 Mixed disorder of acid-base balance; K56.609 Unspecified intestinal obstruction, unspecified as to partial versus complete obstruction; R17 Unspecified jaundice; K29.80 Duodenitis without bleeding; E86.0 Dehydration; D75.1 Secondary polycythemia; E87.6 Hypokalemia; I70.0 Atherosclerosis of aorta; K43.9 Ventral hernia without obstruction or gangrene; Z87.891 Personal history of nicotine dependence; Z90.710 Acquired absence of both cervix and uterus; Z98.41 Cataract extraction status, right eye; Z98.42 Cataract extraction status, left eye; K21.9 Gastro-esophageal reflux disease without esophagitis; M19.90 Unspecified osteoarthritis, unspecified site; Z90.722 Acquired absence of ovaries, bilateral; Z79.899 Other long term (current) drug therapy
CPT/HCPCS: 36415; 74177; 80053; 80329; 82248; 82803; 83605; 83690; 83735; 85025; 85027; 87040; 96361; 96365; 96375; C9113; J2270; J2543; J3010; J3480; Q9967; 82003; 99285-25; J7030

== ENCOUNTER 2020-09-26 07:37 | Emergency (ER) | payer MEDICARE, OTHER ==
[~2020-09-26] VITALS: Ht 157.5 cm; Wt 58.0 kg
[~2020-09-26 07:37] MED LIST changes: +POTA20TA4 PO
[2020-09-26] MEDS ORDERED: ONDANSETRON PF 4 MG/2 ML VIAL. ONE (07:48)
[2020-09-26 07:52] VITALS: BP 163/80
[2020-09-26] MEDS ORDERED: IV NORMAL SALINE 1,000ML 1,000 ML IV ONE (08:00)
[2020-09-26] MEDS ORDERED: IOHEXOL 300 MG/ML 75 ML VIAL. IV ONE (08:00)
--- NOTE | 2020-09-26 08:09 | PHYS DOC ---
Past History Past Medical History: CHF, GERD Past Surgical History: Appendectomy, Hysterectomy Smoking: Non-smoker Alcohol Use: None Drug Use: None General Adult EDM: Chief Complaint: NAUSEA/VOMITING/DIARRHEA HPI: HPI: 89-year-old female accompanied by family presents with epigastric abdominal pain. The patient has had some diarrhea and vomiting last night and this morning. She called family earlier this morning to tell him about her abdominal pain. She has a history of intermittent small bowel obstruction. It is occurred several times, but resolves without surgery. They are concerned about this being another one of his episodes. Patient's pain is a sharp cramping of moderate intensity. Denies fever or chills. Review of Systems: Review of Systems: Constitutional: Denies fever or chills Eyes: Denies change in visual acuity HENT: Denies nasal congestion or sore throat Respiratory: Denies cough or shortness of breath Cardiovascular: Denies chest pain or edema GI: Epigastric abdominal pain, nausea, vomiting. : Denies dysuria Musculoskeletal: Denies back pain or joint pain Integument: Denies rash Neurologic: Denies headache, focal weakness or sensory changes Endocrine: Denies polyuria or polydipsia Lymphatic: Denies swollen glands Psychiatric: Denies depression or anxiety Current Medications: Current Meds: Current Medications Medications (Trade) Dose Ordered Sig/Ethan Start Time Stop Time Status Last Admin Dose Admin Fentanyl Citrate (Fentanyl 2ml Vial) 50 mcg 1X ONCE 09/26/20 08:00 09/26/20 08:01 UNV Iohexol (Omnipaque 300 Mg/ml) 75 ml 1X ONCE 09/26/20 08:00 09/26/20 08:01 UNV Ondansetron HCl (Zofran) 4 mg STK-MED ONCE 09/26/20 07:48 09/26/20 07:48 DC Sodium Chloride 1,000 ml @ 1,000 mls/hr 1X ONCE 09/26/20 08:00 09/26/20 08:59 09/26/20 07:59 1,000 MLS/HR Allergies: Allergies: Allergies Coded Allergies Type Severity Reaction Last Updated Verified No Known Drug Allergies 06/19/18 No Physical Exam: PE: Constitutional: Well developed, well nourished, no acute distress, non-toxic appearance. [] HENT: Normocephalic, atraumatic, bilateral external ears normal, oropharynx moist, no oral exudates, nose normal. [] Eyes: PERRLA, EOMI, conjunctiva normal, no discharge. [] Neck: Normal range of motion, no tenderness, supple, no stridor. [] Cardiovascular: Heart rate 85, regular rhythm, no murmur [] Lungs & Thorax: Bilateral breath sounds clear to auscultation [] Abdomen: Bowel sounds normal, soft, epigastric tenderness, no masses, no pulsatile masses. [] Skin: Warm, dry, no erythema, no rash. [] Back: No tenderness, no CVA tenderness. [] Extremities: No tenderness, no cyanosis, no clubbing, ROM intact, no edema. [] Neurologic: Alert and oriented X 3, normal motor function, normal sensory function, no focal deficits noted. [] Psychologic: Affect normal, judgement normal, mood normal. [] Current Patient Data: Vital Signs: Vital Signs Date Time Temp Pulse Resp B/P (MAP) Pulse Ox O2 Delivery O2 Flow Rate FiO2 09/26/20 07:52 97.6 90 24 163/80 (107) 99 EKG: EKG: Sinus rhythm, rate 85, normal axis, no ST elevation or depression, prolonged QTC. [] Radiology/Procedures: Radiology/Procedures: [] Impressions: CT STUDY OF THE ABDOMEN AND PELVIS WITH CONTRAST Clinical indications: Epigastric pain. History of bowel obstruction. TECHNIQUE: After IV infusion of 75 cc of Omnipaque [address] scanning of the abdomen and pelvis was performed. GI contrast was not administered. This may decrease the sensitivity to detect GI tract pathology. PQRS COMPLIANCE STATEMENT One or more of the following individualized dose reduction techniques were utilized for this study: 1. Automated exposure control 2. Adjustment of the mA and/or kV according to patient size 3. Use of iterative reconstruction technique COMPARISON: March 18, 2019 FINDINGS: No hepatic mass is seen. The spleen is not enlarged. No pancreatic mass is seen. The gallbladder is surgically absent. There is mild prominence of the intrahepatic bile ducts which is unchanged from the prior study consistent with a reservoir effect after a cholecystectomy. No adrenal mass is seen. No hydronephrosis or hydroureter or urinary tract stone is evident. No renal mass is evident. No focal aneurysmal dilatation of the abdominal aorta is seen. No enlarged abdominal or pelvic lymphadenopathy is seen. Urinary bladder wall is smooth. Uterus is surgically absent. The appendix is normal. There is dilatation of small bowel bowel loops within the abdomen and pelvis with mild wall thicke chris and enhancement. Most of the small bowel is filled with fluid. There is a caliber change of the distal small bowel. Findings are consistent with a mid to distal small bowel obstruction. Caliber change is located within the anterior mid abdomen deep to surgical mesh of the anterior abdominal wall at the level of the umbilicus. Therefore, this could be due to adhesion. There is mild mesenteric inflammation here. No free intraperitoneal air is seen. Small amount of dependent free fluid is seen within the pelvis. No lung base consolidation is seen. Right lung base lung nodules are unchanged. No lytic process is seen. Again seen is a moderate compression fracture of L1 which is unchanged. There is a new compression fracture of the superior endplate of L2 and a new compression fracture of the inferior endplate of L4. IMPRESSION: Mid to distal small bowel obstruction. The point of obstruction is located anteriorly deep to surgical hernia mesh repair of the anterior abdominal wall at the level of the umbilicus. No abdominal wall or umbilical hernia is seen here however. No free air is evident. There is a small amount of dependent free fluid within the pelvis. New mild compression fractures of L2 and L4 since March 18, 2019. Electronically signed by: Lainey Hu MD (09/26/2020 9:23 AM) [id number] DICTATED AND SIGNED BY: LAINEY HU MD DATE: 09/26/20 0905 CC: ROYAL CABAN DO; ELAINA IQBAL MD ~MTH0 0 Heart Score: C/O Chest Pain: N/A Risk Factors: Risk Factors: DM, Current or recent (<one month) smoker, HTN, HLP, family history of CAD, obesity. Risk Scores: Score 0 - 3: 2.5% MACE over next 6 weeks - Discharge Home Score 4 - 6: 20.3% MACE over next 6 weeks - Admit for Clinical Observation Score 7 - 10: 72.7% MACE over next 6 weeks - Early Invasive Strategies Course & Med Decision Making: Course & Med Decision Making Pertinent Labs and Imaging studies reviewed. (See chart for details) The patient's labs are significant for a lactic acid of 4.2. I have ordered 30 mL/kg of fluids. Rest for labs are unremarkable. The patient CT scan shows a small bowel obstruction. I spoke with Dr. Sesay, general surgery and he believes the patient should be transferred to [facility]. I will place an NG tube. I then spoke with Dr. Yanes, the hospitalist and he has accepted the patient for transfer and admission. Patient and family are in agreement with this plan. She will go by ambulance. 32 minutes of critical care time was spent on this patient exclusive of other billable procedures. [] Dragon Disclaimer: Dragon Disclaimer: This electronic medical record was generated, in whole or in part, using a voice recognition dictation system. Departure Departure: Impression: Primary Impression: Small bowel obstruction Additional Impression: Lactic acidosis Disposition: 02 SHORT TERM HOSPITAL Condition: GUARDED Referrals: ELAINA IQBAL MD (PCP) ROYAL CABAN DO September 26, 2020 08:09
[2020-09-26] MEDS ORDERED: CONTRAST GIVEN. MC PRN (08:15)
[2020-09-26 08:30] LABS: BASO % 1 % (0-3); EOS % 0 % (0-3); HEMATOCRIT 43.4 % (36.0-47.0); HEMOGLOBIN 14.8 g/dL (12.0-15.5); LYMPH # 0.7 x10^3/uL (1.0-4.8); LYMPH % 8 % (24-48); MEAN CORPUSCULAR HEMOGLOBIN 33 pg (25-35); MEAN CORPUSCULAR HGB CONC 34 g/dL (31-37); MEAN CORPUSCULAR VOLUME 96 fL (79-100); MONO # 0.2 x10^3/uL (0.0-1.1); MONO % 3 % (0-9); NEUT # 7.1 x10^3uL (1.8-7.7); NEUT % 88 % (31-73); PLATELET COUNT 153 x10^3/uL (140-400); RED BLOOD COUNT 4.51 x10^6/uL (3.50-5.40); RED CELL DISTRIBUTION WIDTH 12.8 % (11.5-14.5); WHITE BLOOD COUNT 8.1 x10^3/uL (4.0-11.0)
[2020-09-26 08:42] LABS: CALCIUM 9.1 mg/dL (8.5-10.1); CREATININE 0.8 mg/dL (0.6-1.0); GFR 67.7; POTASSIUM 3.7 mmol/L (3.5-5.1)
[2020-09-26 08:48] LABS: ALBUMIN 3.4 g/dL (3.4-5.0); TOTAL BILIRUBIN 0.7 mg/dL (0.2-1.0); TOTAL PROTEIN 6.9 g/dL (6.4-8.2)
[2020-09-26] MEDS ORDERED: NORMAL SALINE IV SCH (09:15)
--- NOTE | 2020-09-26 09:25 | RAD ---
CT STUDY OF THE ABDOMEN AND PELVIS WITH CONTRAST Clinical indications: Epigastric pain. History of bowel obstruction. TECHNIQUE: After IV infusion of 75 cc of Omnipaque [address] scanning of the abdomen and pelvis was performed. GI contrast was not administered. This may decrease the sensitivity to detect GI tract pathology. PQRS COMPLIANCE STATEMENT One or more of the following individualized dose reduction techniques were utilized for this study: 1. Automated exposure control 2. Adjustment of the mA and/or kV according to patient size 3. Use of iterative reconstruction technique COMPARISON: March 18, 2019 FINDINGS: No hepatic mass is seen. The spleen is not enlarged. No pancreatic mass is seen. The gallbl adder is surgically absent. There is mild prominence of the intrahepatic bile ducts which is unchange d from the prior study consistent with a reservoir effect after a cholecystectomy. No adrenal mass is seen. No hydronephrosis or hydroureter or urinary tract stone is evident. No renal mass is evident. No focal aneurysmal dilatation of the abdominal aorta is seen. No enlarged abdominal or pelvic lympha denopathy is seen. Urinary bladder wall is smooth. Uterus is surgically absent. The appendix is jaky l. There is dilatation of small bowel bowel loops within the abdomen and pelvis with mild wall thicke chris and enhancement. Most of the small bowel is filled with fluid. There is a caliber change of the distal small bowel. Findings are consistent with a mid to distal small bowel obstruction. Caliber paulie nge is located within the anterior mid abdomen deep to surgical mesh of the anterior abdominal wall a t the level of the umbilicus. Therefore, this could be due to adhesion. There is mild mesenteric infl ammation here. No free intraperitoneal air is seen. Small amount of dependent free fluid is seen with in the pelvis. No lung base consolidation is seen. Right lung base lung nodules are unchanged. No lyt ic process is seen. Again seen is a moderate compression fracture of L1 which is unchanged. There is a new compression fracture of the superior endplate of L2 and a new compression fracture of the infer ior endplate of L4. IMPRESSION: Mid to distal small bowel obstruction. The point of obstruction is located anteriorly avtar p to surgical hernia mesh repair of the anterior abdominal wall at the level of the umbilicus. No abd ominal wall or umbilical hernia is seen here however. No free air is evident. There is a small amount of dependent free fluid within the pelvis. New mild compression fractures of L2 and L4 since March 18, 2019. Electronically signed by: Herson Hu MD (09/26/2020 9:23 AM) [id number]
[2020-09-26 09:44] LABS: AMORPHOUS SEDIMENT,UR PRESENT /HPF; BACTERIA,URINE 0 /HPF (0-FEW); BILIRUBIN,URINE NEG (NEG); CLARITY,URINE CLEAR; COLOR,URINE YELLOW; GLUCOSE,URINE 100 mg/dL (NEG); NITRITE,URINE NEG (NEG); RBC,URINE 0 /HPF (0-2); SQUAMOUS EPITHELIAL CELL,UR FEW /LPF
--- NOTE | 2020-09-26 09:50 | EKG ---
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
== END 2020-09-26 13:04 | disposition short-term general hospital (02) ==
LOC: ER 07:37
DX: K56.609 Unspecified intestinal obstruction, unspecified as to partial versus complete obstruction (principal); E87.2 Acidosis; K21.9 Gastro-esophageal reflux disease without esophagitis; Z90.49 Acquired absence of other specified parts of digestive tract
CPT/HCPCS: 36415; 74177; 80053; 81001; 83605; 83690; 84484; 85025; 93005; 96361; 96374; 99285; J3010; J7030

== ENCOUNTER → 2021-05-26 | Outpatient (CLI) | payer MEDICARE, OTHER ==
--- NOTE | 2021-05-26 21:34 | RAD ---
Exam: XR KNEE 3 [id number] History: Right knee pain. Comparison: None. Findings: Decreased osseous mineralization. No fracture or dislocation. Tricompartment minimal degenerative paulie nges with marginal osteophyte formation. Small suprapatellar effusion. No focal soft tissue swelling. Impression: 1. Degenerative changes of the right knee without acute osseous abnormality. Electronically signed by: Sylvain Mabry MD (05/26/2021 9:32 PM) [facility]
== END ==
LOC: RAD 17:53
PROVIDERS: ATTEND Nurse Practitioner Family
DX: M17.11 Unilateral primary osteoarthritis, right knee (principal); M25.761 Osteophyte, right knee; M25.461 Effusion, right knee
CPT/HCPCS: 73562